=== PATIENT | female | born 1960 | race Caucasian/White ===

== ENCOUNTER → 2018-09-10 | Day surgery (SDC) | payer BC ==
[~2018-09-10] MED LIST: FENTANYL CITRATE/PF 100MCG/2 ML INJ ONE; HYOSCYAMINE SULFATE 0.5 MG/ML INJ IV ONE; MIDAZOLAM HCL 2 MG/2 ML VIAL ONE; PROPOFOL IV EMULSION 10 MG/ML 50 ML VIAL IV ONE
--- OUTSIDE RECORDS SUMMARY | 2018-09-10 07:27 | XMS REPORT | Continuity of Care Document ---
Author Author [facility] Interface Address Unknown Phone Unavailable Problems Problem Status Onset Date Classification Date Reported Comments Source R52 - "PAIN, UNSPECIFIED" Active 05/29/2016 TAMMY [facility] HAND INJURY Active 06/09/2014 [facility] Discharge Diagnosis: Hand laceration 06/09/2014 06/12/2014 [facility] None Resolved Problem 06/01[facility]2016 [facility] Medic[facility] Medication Details Route Status Patient Instructions Ordering Provider Order Date Source Cephalexin 500 MG Oral Capsule [Keflex] 500 mg=1 cap, PO, BID, # 14 cap, 0 Refill(s) Active 06/10/2014 [facility] Acetaminophen 325 MG / Hydrocodone Bitartrate 5 MG Oral Tablet [[place] 5/325] 1-2 tab, PO, Q4-6H, Pain, # 15 tab, 0 Refill(s) Active 06/10/2014 [facility] Lidocaine 1 %, Route: SUB-Q, Drug form: INJ, ONCE, Dosing Weight 61.364, kg, Start date: 06/09/14 20:34:00, Stop date: 06/09/14 20:34:00Notes: (Same as: Xylocaine) Inactive 06/10/2014 [facility] Acetaminophen 325 MG / Hydrocodone Bitartrate 5 MG Oral Tablet [[place] 5/325] 1 tab, Route: PO, Drug Form: TAB, Dosing Weight 61.364, kg, ONCE, STAT, Start date: 06/09/14 20:34:00, Stop date: 06/09/14 20:34:00Notes: (Same as: [place] 325/5) Do not exceed 4gm/day of acetaminophen. Inactive 06/10/2014 [facility] Allergies, Adverse Reactions, Alerts Substance Category Reaction Severity Reaction type Status Date Reported Comments Source Immunizations Immunization Date Given Site Status Last Updated Comments Source diphtheria/pertussis, acel/tetanus adult 06/10/2014 Right deltoid [facility] Results Order Name Results Value Reference Range Date Interpretation Comments Source Spine cervical 2 or 3 view DX Spine cervical 2 or 3 view DX Exam: Cervical spine x-ray, 3 views Reason for Exam: back pain Comparison Exam: None Discussion: On lateral view, the cervical spine is seen from the C1 vertebral body level down through the C7/T1 junction. Vertebral body heights are maintained. No spondylolisthesis. Mild multilevel degenerative disc disease. Note is made of an accessory left rib at the C7 level. Patient is status post posterior fusion within the upper thoracic spine. No suspicious osteoblastic or osteolytic lesions. Prevertebral soft tissue is within normal limits. Lateral masses of C1 and dens of C2 appear intact. Please note that a cervical spine x-ray cannot rule out ligamentous injuries or spinal cord abnormalities. Visualized portions of the lung apices are unremarkable. Impression: 1. Vertebral body heights are maintained. No spondylolisthesis. Mild multilevel degenerative disc disease. 05/29/2016 - - Read by: Gerhard Johnson MD Dictated Date/time: 05/29/16 15:47 Electronically Signed by: Gerhard Johnson MD 05/29/16 15:52 FINAL REPORT [facility] Spine thoracic 3 views DX Spine thoracic 3 views DX Exam: Thoracic spine x-ray, 2 views Reason for Exam: back pain Comparison Exam: None Discussion: Patient is status post posterior lumbar fusion from the T1-T5 level. Overall, the vertebral body heights are maintained. No spondylolisthesis. No scoliosis identified. Moderate multilevel degenerative disc disease seen within the thoracic spine. Note that a thoracic spine x-ray cannot rule out ligamentous injuries or spinal cord abnormalities. The visualized portions of the mediastinum are unremarkable. Impression: 1. Patient is status post posterior lumbar fusion from the T1-T5 level. Overall, the vertebral body heights are maintained. No spondylolisthesis. 05/29/2016 - - Read by: Gerhard Johnson MD Dictated Date/time: 05/29/16 15:52 Electronically Signed by: Gerhard Johnson MD 05/29/16 15:59 FINAL REPORT [facility] Vital Signs Vital Sign Value Date Comments Source Heart Rate 66 06/10/2014 [facility] Diastolic (mm Hg) 65 06/10/2014 [facility] Respitory Rate 16 06/10/2014 [facility] Systolic (mm Hg) 142 06/10/2014 [facility] BMI Calculated 22.19 06/10/2014 [facility] Weight 56.818 06/10/2014 [facility] Height 160.02 cm 06/10/2014 [facility] Systolic (mm Hg) 154 06/10/2014 [facility] Respitory Rate 16 06/10/2014 [facility] Diastolic (mm Hg) 93 06/10/2014 [facility] Heart Rate 65 06/10/2014 [facility] Temperature Oral (F) 98.0 F 06/10/2014 [facility] Encounters Location Location Details Encounter Type Encounter Number Reason For Visit Attending Provider ADM Date DC Date Status Source [facility] [id number] Cat Donaldson 06/10/2014 06/10/2014 [facility] [id number] Nguyễn Solorio 05/29/2016 05/30/2016 TAMMY Rodriguez Procedures Procedure Code Date Perfomer Comments Source
--- OUTSIDE RECORDS SUMMARY | 2018-09-10 07:27 | XMS REPORT | Summary of Care ---
Author Author [facility] [place] Organization [facility] [place] Address Unknown Phone Unavailable Encounter [facility] Danyeljeannier_cristino(FIN) [id number] Date(s): 05/29/16 - 05/29/16 [facility] [place] [address] [place] [phone] Discharge Disposition: Home or Self Care Attending Physician: Nguyễn Solorio MD Vital Signs No data available for this section Problem List Condition Effective Dates Status Health Status Informant None(Confirmed) Resolved Allergies, Adverse Reactions, Alerts Substance Reaction Severity Status NKDA Active Medications No data available for this section Results No data available for this section Immunizations Given and Recorded Vaccine Date Status Refusal Reason diphtheria/pertussis, acel/tetanus adult 06/09/14 Given Procedures No data available for this section Social History Social History Type Response Smoking Status Former smoker; Exposure to Tobacco Smoke None; Cigarette Smoking Last 365 Days No; Reg Smoking Cessation Counseling No Assessment and Plan No data available for this section
--- OUTSIDE RECORDS SUMMARY | 2018-09-10 07:27 | XMS REPORT | Summary of Care ---
Author Organization Unknown Address Unknown Phone Unavailable Encounter HQ Alan(FIN) [id number] Date(s): 06/09/14 - 06/09/14 [facility] [address] Discharge Diagnosis: Hand laceration Discharge Disposition: Home Physician Attending: Sanam Donaldson DO Reason for Visit HAND INJURY Vital Signs 1 2 3 Most recent to oldest [Reference Range]: 160.02 cm (06/09/14 8:19 PM) 160.02 cm (06/09/14 8:19 PM) Height 98.0 DegF (06/09/14 8:19 PM) 98.0 DegF (06/09/14 8:19 PM) Temperature Oral [96.4-99.1 DegF] 142 mmHg *HI* (06/09/14 10:12 PM) 154 mmHg *HI* (06/09/14 8:19 PM) 154 mmHg *HI* (06/09/14 8:19 PM) Systolic Blood Pressure [90-140 mmHg] 65 mmHg (06/09/14 10:12 PM) 93 mmHg *HI* (06/09/14 8:19 PM) 93 mmHg *HI* (06/09/14 8:19 PM) Diastolic Blood Pressure [60-90 mmHg] 16 BRMIN (06/09/14 10:12 PM) 16 BRMIN (06/09/14 8:19 PM) 18 BRMIN (06/09/14 8:19 PM) Respiratory Rate [14-20 BRMIN] 66 bpm (06/09/14 10:12 PM) 65 bpm (06/09/14 8:19 PM) 72 bpm (06/09/14 8:19 PM) Peripheral Pulse Rate [60-100 bpm] 56.818 kg (06/09/14 8:19 PM) 61.364 kg (06/09/14 8:19 PM) Weight 22.19 m2 (06/09/14 8:19 PM) 23.96 m2 (06/09/14 8:19 PM) Body Mass Index Problem List Condition Effective Dates Status Health Status Informant None(Confirmed) Resolved Allergies, Adverse Reactions, Alerts Substance Reaction Severity Status NKDA Active Medications Keflex 500 mg oral capsule 500 mg=1 cap, PO, BID, # 14 cap, 0 Refill(s) Start Date: 06/09/14 Stop Date: 06/16/14 Status: Ordered lidocaine 1 %, Route: SUB-Q, Drug form: INJ, ONCE, Dosing Weight 61.364, kg, Start date: 0 06/09/14 20:34:00, Stop date: 06/09/14 20:34:00 Notes: (Same as: Xylocaine) Start Date: 06/09/14 Stop Date: 06/09/14 Status: Completed [place] 5/325 oral tablet 1 tab, Route: PO, Drug Form: TAB, Dosing Weight 61.364, kg, ONCE, STAT, Start da te: 06/09/14 20:34:00, Stop date: 06/09/14 20:34:00 Notes: (Same as: [place] 325/5) Do not exceed 4gm/day of acetaminophen. Start Date: 06/09/14 Stop Date: 06/09/14 Status: Completed [place] 5/325 oral tablet 1-2 tab, PO, Q4-6H, Pain, # 15 tab, 0 Refill(s) Start Date: 06/09/14 Stop Date: 06/14/14 Status: Ordered Medications Administered During Your Visit No data available for this section Immunizations Vaccine Date Refusal Reason diphtheria/pertussis, acel/tetanus adult 06/09/14 Social History Social History Type Response Smoking Status Former smoker, Exposure to Tobacco Smoke None, Cigarette Smoking Last 365 Days No, Reg Smoking Cessation Counseling No
[2018-09-10 11:40] VITALS: BP 112/68
[2018-09-10 12:59] LABS: C DIFFICILE TOXIN A&B AMP PROB NEGATIVE (NEGATIVE); WBC,FECAL (FECAL LACTOFERRIN) NEGATIVE (NEGATIVE)
--- NOTE | 2018-09-10 13:42 | Operative Report ---
DATE OF PROCEDURE: September 10, 2018 REFERRING PHYSICIAN: Dr. Nguyễn Solorio. PROCEDURE PERFORMED: Colonoscopy and polypectomy. INDICATIONS FOR COLONOSCOPY: Colon cancer surveillance, change of bowel habits. MEDICATION: Patient was done under MAC. Please see anesthesiologist's note. PROCEDURE: With the patient in the left lateral decubitus position, the flexible fiberoptic Olympus colonoscope was inserted into the rectum with ease and advanced all the way to the cecum. Mucosa overlying the cecum appeared to be within normal limits. The ileocecal valve was intubated, and the scope was advanced into the terminal ileum. Biopsies were obtained. The scope was then withdrawn back into the colon. It was then withdrawn slowly, and mucosa overlying the ascending colon and transverse colon grossly appeared to be within normal limits. There were some mild patchy inflammatory changes noted in the left colon. Also, the left colon was somewhat ahaustral, and multiple random biopsies were obtained. One polyp was snared and 1 polyp was hot biopsied from the sigmoid colon. Two polyps were hot biopsied from the rectum. There was a submucosal nodule noted in the distal rectum, and that was snared to rule out carcinoid. The scope was then retroflexed into the distal rectum, and the area around the dentate line grossly appeared to be within normal limits. The scope was then straightened out. It was subsequently withdrawn. Some small external hemorrhoids were noted on the way out. Patient tolerated the procedure well. IMPRESSION: 1. Mild patchy left-sided colitis. 2. Sigmoid colon polyps times 2, one snared and one hot biopsied. 3. Rectal polyps times 2 hot biopsied. 4. Submucosal nodule distal rectum, ?carcinoid, snared. PLAN: Follow up histology. Follow up stool studies. Initiate VSL#3 one p.o. daily and Bentyl 10 mg 1 p.o. t.i.d. Timing of followup colonoscopy pending pathology report. Job#: [id number] EV cc:NGUYỄN SOLORIO MD
== END | disposition home or self-care (01) ==
LOC: OR 07:24
PROVIDERS: ATTEND Internal Medicine Gastroenterology
DX: K51.50 Left sided colitis without complications (principal); K62.1 Rectal polyp; K62.89 Other specified diseases of anus and rectum; K64.4 Residual hemorrhoidal skin tags; F17.210 Nicotine dependence, cigarettes, uncomplicated; Z01.810 Encounter for preprocedural cardiovascular examination; Z91.030 Bee allergy status
CPT/HCPCS: 45380; 45384; 45385; 83630; 83993; 87045; 87177; 87328; 87493; 93005; J1980; J2250; 45378

== ENCOUNTER 2022-08-16 17:55 | Emergency (ER) | payer BC, OTHER ==
[~2022-08-16] VITALS: Ht 160 cm; Wt 64.0 kg
[2022-08-16] MEDS ORDERED: DIPHTH/TETANUS/ACEL. PERTUSSIS 0.5 ML SYR IM ONE (18:30)
[2022-08-16] MEDS ORDERED: HYDROCODONE/APAP 10MG-325MG TAB PO ONE (18:30)
[2022-08-16] MEDS ORDERED: HYDROCODONE/APAP 5MG-325MG TAB PO ONE (18:45)
[2022-08-16] MEDS ORDERED: HYDROCODONE/APAP 5MG-325MG TAB ONE (18:48)
[2022-08-16] MEDS ORDERED: TETANUS/DIPHTHERIA TOX ADULT 0.5 ML SYR ONE (18:49)
[2022-08-16] MEDS ORDERED: IBUPROFEN 600 MG TAB PO STA (21:22)
[2022-08-16] MEDS ORDERED: IBUPROFEN600 MG PO (21:37)
[2022-08-16] MEDS ORDERED: IBUPROFEN 600 MG TAB ONE (21:57)
[2022-08-16 23:02] VITALS: BP 158/89
== END 2022-08-16 21:58 | disposition home or self-care (01) ==
LOC: FSED 18:19
DX: S92.412A Displaced fracture of proximal phalanx of left great toe, initial encounter for closed fracture (principal); S01.81XA Laceration without foreign body of other part of head, initial encounter; S20.211A Contusion of right front wall of thorax, initial encounter; W01.0XXA Fall on same level from slipping, tripping and stumbling without subsequent striking against object, initial encounter; Y92.89 Other specified places as the place of occurrence of the external cause; I10 Essential (primary) hypertension
CPT/HCPCS: 70450; 70486; 71250; 72125; 90471; 90714; 96372; 99284

== ENCOUNTER → 2025-06-29 | Day surgery (SDC) | payer MEDICARE, OTHER ==
[2025-06-28 10:52] LABS: BASOPHILS % 0.8 % (0.0-1.0); EOSINOPHILS % 2.6 % (0.0-6.0); LYMPHOCYTES % 33.2 % (18.0-39.1); MONOCYTES % 9.3 % (4.4-11.3); NEUTROPHILS % 53.9 % (38.7-80.0); RED CELL DISTRIBUTION WIDTH 13.2 % (11.7-14.4)
[~2025-06-29] MED LIST changes: +AMLODIPINE BESY10 MG PO; -FENTANYL CITRATE/PF 100MCG/2 ML INJ ONE; +GLUCAGON FOR INJ 1 MG VIAL ONE; -HYOSCYAMINE SULFATE 0.5 MG/ML INJ IV ONE; +HYOSCYAMINE SULFATE 0.5 MG/ML INJ ONE; +IBUPROFEN600 MG PO; +LIDOCAINE HCL 2% LOCAL INJ 5 ML SDV VIAL INJ ONE; +LOSARTAN POTASS25 MG PO; -MIDAZOLAM HCL 2 MG/2 ML VIAL ONE; +ONDANSETRON HCL INJ 2MG/ML 2ML 2 MG/ML VIAL ONE; -PROPOFOL IV EMULSION 10 MG/ML 50 ML VIAL IV ONE; +PROPOFOL IV EMULSION 50 ML IV ONE
[2025-06-29] MEDS: LACTATED RINGER'S 1,000 ML ONE (10:45)
[2025-06-29 13:25] VITALS: TEMP 98
[2025-06-29 14:05] VITALS: BP 125/70; PULSE 65; RESP 16; O2SAT 99
== END | disposition home or self-care (01) ==
LOC: OR 10:02
PROVIDERS: ATTEND Internal Medicine Gastroenterology
DX: K29.50 Unspecified chronic gastritis without bleeding (principal); B96.81 Helicobacter pylori [H. pylori] as the cause of diseases classified elsewhere; D12.2 Benign neoplasm of ascending colon; K20.90 Esophagitis, unspecified without bleeding; K57.30 Diverticulosis of large intestine without perforation or abscess without bleeding; K64.8 Other hemorrhoids; E66.01 Morbid (severe) obesity due to excess calories; I10 Essential (primary) hypertension; Z71.89 Other specified counseling; E78.5 Hyperlipidemia, unspecified; Z01.810 Encounter for preprocedural cardiovascular examination; Z01.812 Encounter for preprocedural laboratory examination; Z79.899 Other long term (current) drug therapy; Z68.26 Body mass index [BMI] 26.0-26.9, adult; Z71.3 Dietary counseling and surveillance; Z87.891 Personal history of nicotine dependence; Z80.0 Family history of malignant neoplasm of digestive organs
CPT/HCPCS: 36415; 43239; 45385; 85025; 88305; 93005; J1610; J1980; J2003; J2405; J2470; J2704; J7121; 45378